=== PATIENT | male | born 1975 | race Caucasian/White ===

== ENCOUNTER 2021-09-21 09:03 | Inpatient (IN) | payer OTHER ==
[2021-09-21 09:47] VITALS: BMI 39.3
[2021-09-21] MEDS ORDERED: ACETAMINOPHEN 325 MG TABLET (FP) PO PRN ×2 (11:03)
[2021-09-21] MEDS ORDERED: MAG HYDROX/AL HYDROX/SIMETH 30 ML UNIT-DOSE CUP PO PRN (11:03)
[2021-09-21] MEDS ORDERED: MENTHOL/PHENOL 1 EACH UD MM PRN (11:03)
[2021-09-21] MEDS ORDERED: BISMUTH SUBSALICYLATE 524 MG/30 ML PO PRN (11:03)
[2021-09-21] MEDS ORDERED: MAGNESIUM HYDROX 2400MG/30ML ORAL SUSPENSION 30 ML CUP PO PRN (11:03)
[2021-09-21] MEDS ORDERED: MAGNESIUM CITRATE 300 ML BOTTLE PO PRN (11:03)
[2021-09-21] MEDS: LORazepam 2 MG TABLET PO SCH ×3 (11:38→22:41)
[2021-09-21] MEDS: METHOCARBAMOL 500 MG TABLET PO PRN ×2 (11:39→21:20)
[2021-09-21] MEDS: ONDANSETRON *ODT* 4 MG TABLET SL PRN (11:42)
[2021-09-21] MEDS: hydrOXYzine PAMOATE 25 MG CAPSULE (FP) PO SCH ×3 (14:42→21:20)
[2021-09-21] MEDS: LORazepam 1 MG TABLET PO PRN (21:21)
[2021-09-21] MEDS: MELATONIN 5 MG TABLETS PO SCH (22:42)
[2021-09-21] MEDS: BACITRACIN 0.9 GM PACKET TP SCH (22:42)
[2021-09-21] MEDS: THIAMINE HCL 100 MG TABLET (FP) PO SCH (22:42)
[2021-09-22] MEDS: hydrOXYzine PAMOATE 25 MG CAPSULE (FP) PO SCH ×5 (05:52→22:30)
[2021-09-22] MEDS: LORazepam 2 MG TABLET PO SCH ×4 (05:52→22:31)
[2021-09-22] MEDS: ONDANSETRON *ODT* 4 MG TABLET SL PRN (07:20)
[2021-09-22] MEDS: IBUPROFEN 400 MG TABLET (FP) PO PRN ×2 (07:35→22:33)
[2021-09-22 10:06] LABS: ALBUMIN 3.1 g/dl (3.4-5.0); CALCIUM 8.5 mg/dL (8.5-10.1)
[2021-09-22 10:09] LABS: CREATININE 0.8 mg/dL (0.55-1.3)
[2021-09-22 10:11] LABS: BILIRUBIN,TOTAL 0.6 mg/dL (0.2-1); TOT PROT 6.6 g/dl (6.4-8.2)
[2021-09-22] MEDS: BACITRACIN 0.9 GM PACKET TP SCH ×2 (10:27→23:35)
[2021-09-22] MEDS: METOPROLOL TARTRATE 25 MG TABLET (FP) PO SCH ×2 (10:27→22:30)
[2021-09-22] MEDS: METHOCARBAMOL 500 MG TABLET PO PRN (10:32)
[2021-09-22] MEDS: PRENATAL VITAMINS W/ FOLIC ACID TABLET (FP) PO SCH (10:34)
[2021-09-22 11:18] LABS: HEMATOCRIT 41.8 % (35.4-49); HEMOGLOBIN 13.9 GM/dL (11.7-16.9); MCH 30.5 pg (25.7-33.7); MCHC 33.3 g/dl (32.0-35.9); MEAN CELL VOLUME 91.7 fl (80-96); MEAN PLT VOLUME 7.1 fl (7.5-11.1); PLATELET COUNT 201 10^3/uL (134-434); RBC 4.56 M/mm3 (4.00-5.60); RDW 15.1 % (11.9-15.9); WHITE BLOOD COUNT 6.3 K/mm3 (4.0-10.0)
[2021-09-22] MEDS: LORazepam 1 MG TABLET PO PRN (13:11)
[2021-09-22] MEDS: amLODIPine BESYLATE 10 MG TABLET (FP) PO SCH (15:38)
[2021-09-22] MEDS: MELATONIN 5 MG TABLETS PO SCH (22:30)
[2021-09-22] MEDS: THIAMINE HCL 100 MG TABLET (FP) PO SCH (22:30)
[2021-09-23] MEDS: LORazepam 1 MG TABLET PO SCH ×4 (05:54→22:35)
[2021-09-23] MEDS: hydrOXYzine PAMOATE 25 MG CAPSULE (FP) PO SCH ×5 (05:55→22:34)
[2021-09-23] MEDS: BACITRACIN 0.9 GM PACKET TP SCH ×2 (10:18→22:34)
[2021-09-23] MEDS: amLODIPine BESYLATE 10 MG TABLET (FP) PO SCH (10:19)
[2021-09-23] MEDS: METOPROLOL TARTRATE 25 MG TABLET (FP) PO SCH ×2 (10:19→22:34)
[2021-09-23] MEDS: LORazepam 1 MG TABLET PO PRN (10:21)
[2021-09-23] MEDS: PRENATAL VITAMINS W/ FOLIC ACID TABLET (FP) PO SCH (10:27)
[2021-09-23] MEDS: MELATONIN 5 MG TABLETS PO SCH (22:34)
[2021-09-23] MEDS: THIAMINE HCL 100 MG TABLET (FP) PO SCH (22:34)
[2021-09-24] MEDS: LORazepam 0.5 MG TABLET PO PRN ×3 (01:39→14:47)
[2021-09-24] MEDS: hydrOXYzine PAMOATE 25 MG CAPSULE (FP) PO SCH ×4 (06:00→18:06)
[2021-09-24] MEDS: LORazepam 0.5 MG TABLET PO SCH ×3 (06:00→18:06)
[2021-09-24] MEDS: IBUPROFEN 400 MG TABLET (FP) PO PRN (08:43)
[2021-09-24] MEDS: METOPROLOL TARTRATE 25 MG TABLET (FP) PO SCH (10:21)
[2021-09-24] MEDS: amLODIPine BESYLATE 10 MG TABLET (FP) PO SCH (10:21)
[2021-09-24] MEDS: PRENATAL VITAMINS W/ FOLIC ACID TABLET (FP) PO SCH (10:26)
[2021-09-24] MEDS ORDERED: METOPROLOL TARTRATE 25 MG TABLET (FP) PO SCH (10:28)
[2021-09-24] MEDS: BACITRACIN 0.9 GM PACKET TP SCH (11:31)
[2021-09-24 20:11] VITALS: BP 160/95; PULSE 100; TEMP 98.4
[2021-09-24] MEDS ORDERED: METOPROLOL TARTRATE 50 MG TABLET (FP) PO SCH (22:00)
[2021-09-25] MEDS ORDERED: LORazepam 0.5 MG TABLET PO ONE (05:00)
== END 2021-09-24 18:00 | disposition left against medical advice (07) | DRG 770 ==
LOC: YASAS 09:03 → Y6N 10:47
PROVIDERS: ADMIT Allergy & Immunology; ATTEND Allergy & Immunology
PROC: HZ2ZZZZ Detoxification Services for Substance Abuse Treatment (ICD-10-PCS; principal; 2021-09-21)
DX: F10.230 Alcohol dependence with withdrawal, uncomplicated (principal); F10.220 Alcohol dependence with intoxication, uncomplicated; I10 Essential (primary) hypertension; Z87.828 Personal history of other (healed) physical injury and trauma; Z88.0 Allergy status to penicillin; Z86.69 Personal history of other diseases of the nervous system and sense organs; Z56.0 Unemployment, unspecified
CPT/HCPCS: 36415; 80053; 85027; 86780; 87811; 93005; 93010; C9803; Q0162; U0003; U0005

== ENCOUNTER 2022-05-28 11:20 | Inpatient (IN) | payer OTHER ==
[2022-05-28 13:04] VITALS: BMI 39.0
[2022-05-28] MEDS ORDERED: LOPERAMIDE HCL 2 MG CAPSULE PO PRN (14:01)
[2022-05-28] MEDS ORDERED: MAG HYDROX/AL HYDROX/SIMETH 30 ML UNIT-DOSE CUP PO PRN (14:01)
[2022-05-28] MEDS ORDERED: BENZOCAINE/MENTHOL (CHLORASEPTIC ) LOZENGE MM PRN (14:01)
[2022-05-28] MEDS ORDERED: NICOTINE 10 MG CARTRIDGE (INHALER) IH PRN (14:01)
[2022-05-28] MEDS ORDERED: ACETAMINOPHEN 325 MG TABLET (FP) PO PRN ×2 (14:01)
[2022-05-28] MEDS ORDERED: IBUPROFEN 600 MG TABLET (FP) PO PRN (14:01)
[2022-05-28] MEDS ORDERED: MAGNESIUM HYDROX 2400MG/30ML ORAL SUSPENSION 30 ML CUP PO PRN (14:01)
[2022-05-28] MEDS ORDERED: METHOCARBAMOL 500 MG TABLET PO PRN (14:01)
[2022-05-28] MEDS ORDERED: BISMUTH SUBSALICYLATE 524 MG/30 ML PO PRN (14:01)
[2022-05-28] MEDS ORDERED: MAGNESIUM CITRATE 300 ML BOTTLE PO PRN (14:01)
[2022-05-28] MEDS ORDERED: IBUPROFEN 400 MG TABLET (FP) PO PRN (14:01)
[2022-05-28] MEDS ORDERED: ONDANSETRON *ODT* 4 MG TABLET SL PRN (14:01)
[2022-05-28] MEDS ORDERED: DICYCLOMINE HCL 10 MG CAPSULE PO PRN (14:01)
[2022-05-28] MEDS: diazePAM 5 MG TABLET PO SCH ×3 (14:16→22:18)
[2022-05-28] MEDS ORDERED: amLODIPine BESYLATE 5 MG TABLET (FP) PO ONE (14:30)
[2022-05-28] MEDS: PRENATAL VITAMINS W/ FOLIC ACID TABLET (FP) PO SCH (15:53)
[2022-05-28] MEDS: hydrOXYzine PAMOATE 25 MG CAPSULE (FP) PO SCH ×2 (17:47→22:18)
[2022-05-28] MEDS: THIAMINE HCL 100 MG TABLET (FP) PO SCH (22:18)
[2022-05-28] MEDS: MELATONIN 5 MG TABLETS PO SCH (22:18)
[2022-05-29] MEDS: hydrOXYzine PAMOATE 25 MG CAPSULE (FP) PO SCH ×5 (05:54→22:42)
[2022-05-29] MEDS: diazePAM 5 MG TABLET PO SCH ×4 (05:54→22:42)
[2022-05-29 10:09] LABS: HEMATOCRIT 41.9 % (35.4-49); HEMOGLOBIN 13.9 GM/dL (11.7-16.9); MCH 29.1 pg (25.7-33.7); MCHC 33.3 g/dl (32.0-35.9); MEAN CELL VOLUME 87.3 fl (80-96); PLATELET COUNT 176 10^3/uL (134-434); RDW 17.1 % (11.9-15.9); WHITE BLOOD COUNT 6.9 K/mm3 (4.0-10.0)
[2022-05-29 10:19] LABS: CALCIUM 8.5 mg/dL (8.5-10.1)
[2022-05-29 10:20] LABS: ALBUMIN 3.2 g/dl (3.4-5.0); BLOOD UREA NITROGEN 13.9 mg/dL (7-18)
[2022-05-29 10:23] LABS: CREATININE 0.8 mg/dL (0.55-1.3)
[2022-05-29 10:24] LABS: BILIRUBIN,TOTAL 0.6 mg/dL (0.2-1); TOT PROT 6.7 g/dl (6.4-8.2)
[2022-05-29] MEDS: PRENATAL VITAMINS W/ FOLIC ACID TABLET (FP) PO SCH (10:36)
[2022-05-29] MEDS: amLODIPine BESYLATE 10 MG TABLET (FP) PO SCH (10:36)
[2022-05-29] MEDS: diazePAM 5 MG TABLET PO PRN ×2 (12:22→20:23)
[2022-05-29] MEDS: METOPROLOL TARTRATE 50 MG TABLET (FP) PO SCH ×2 (14:13→22:42)
[2022-05-29] MEDS: MELATONIN 5 MG TABLETS PO SCH (22:43)
[2022-05-29] MEDS: THIAMINE HCL 100 MG TABLET (FP) PO SCH (22:43)
[2022-05-30] MEDS: diazePAM 5 MG TABLET PO SCH ×2 (06:29→15:04)
[2022-05-30] MEDS: hydrOXYzine PAMOATE 25 MG CAPSULE (FP) PO SCH ×3 (06:30→15:04)
[2022-05-30 11:09] VITALS: RESP 18
[2022-05-30] MEDS: amLODIPine BESYLATE 10 MG TABLET (FP) PO SCH (11:37)
[2022-05-30] MEDS: METOPROLOL TARTRATE 50 MG TABLET (FP) PO SCH (11:37)
[2022-05-30] MEDS: PRENATAL VITAMINS W/ FOLIC ACID TABLET (FP) PO SCH (11:38)
[2022-05-30 13:18] VITALS: BP 153/96; PULSE 100; TEMP 97.7
[2022-05-31] MEDS ORDERED: diazePAM 5 MG TABLET PO SCH (06:00)
[2022-06-01] MEDS ORDERED: diazePAM 5 MG TABLET PO ONE (06:00)
== END 2022-05-30 13:25 | disposition left against medical advice (07) | DRG 770 ==
LOC: YASAS 11:20 → Y3N 14:47
PROVIDERS: ADMIT Allergy & Immunology; ATTEND Surgery
PROC: HZ2ZZZZ Detoxification Services for Substance Abuse Treatment (ICD-10-PCS; principal; 2022-05-28)
DX: F10.230 Alcohol dependence with withdrawal, uncomplicated (principal); F13.20 Sedative, hypnotic or anxiolytic dependence, uncomplicated; F14.10 Cocaine abuse, uncomplicated; I10 Essential (primary) hypertension; Z88.0 Allergy status to penicillin
CPT/HCPCS: 36415; 80053; 85027; 86780; C9803-CS; U0003; U0005